=== PATIENT | female | born 1990 | race Caucasian/White ===

== ENCOUNTER 2018-06-10 18:30 | Emergency (ER) | payer MEDICAID, SELFPAY ==
[2018-06-10 18:31] VITALS: BP 109/69; PULSE 100; RESP 14; TEMP 36.8; O2SAT 99; BMI 18.9
--- NOTE | 2018-06-10 20:12 | ED.DCSUM_ITS ---
- ER Visit Summary Date of Service: 06/10/18 Chief Complaint: Right breast redness History of Present Illness: The patient is a 27 F who presents with redness over her right breast that has been getting worse over the past 2 days. Patient states she had a skin tag on her right breast. Patient states her friend told her to put a small rubber band at the base of the skin tag 6 days ago. Patient states that the area has gotten more painful over the last 2 days. Patient describes the pain is sharp. Patient noted some redness around the area. Patient does admit to some shortness of breath. Patient states she is approximately 10 weeks . Physical Examination: Vital signs are stable. Patient is afebrile. Patient is in no acute distress. Skin is warm and dry. There is a skin tag noted over the right breast. There is a small rubber band noted at the base of it. The skin tag does look necrotic. There is some mild redness around the area. There is some tenderness to palpation. Heart was regular rate and rhythm. Lungs are clear and equal bilateral. Abdomen is soft nontender. The remaining physical exam is within normal limits. Emergency Department Course and Treatment: The rubber band was removed from the base of the skin tag. Patient was instructed to use Neosporin ointment to the area. Patient was advised that the skin tag may still fall off as it appears necrotic. Patient was given a prescription for Keflex. Patient was instructed to follow-up with her primary care physician in 5-7 days. Patient understood and was agreeable with the plan. All questions were answered. Disposition: Discharge home Impression: Infected skin tag This note was generated with [employer] dictation software. It may contain incorrect words, spelling, and punctuation that were not noted in review of the chart prior to signing ED Disposition - Plan for ED Patient: Disposition: Home or Assisted Living Diagnosis: Inflamed skin tag Instructions: ED Infec Skin Cellulitis Prescriptions: Cephalexin [Keflex] 500 mg PO Q6 #40 capsule Referrals: Care Physician,No Primary [Primary Care Provider] -
[2018-06-10 21:02] VITALS: RESP 14
== END 2018-06-10 21:02 | disposition home or self-care (01) ==
PROVIDERS: Emergency Provider Emergency Medicine
DX: O26.891 Other specified pregnancy related conditions, first trimester (principal); L91.8 Other hypertrophic disorders of the skin; R06.02 Shortness of breath; Z3A.10 10 weeks gestation of pregnancy
CPT/HCPCS: 99282